=== PATIENT | male | born 1950 | race Caucasian/White ===

== ENCOUNTER 2024-09-21 12:22 | Inpatient (IN) | payer MEDICARE, OTHER, SELFPAY ==
[2024-09-21] VITALS (21 sets, daily range): BP systolic 102–150; BP diastolic 58–78; PULSE 66–86; RESP 8–20; TEMP 34.9–36.8; O2SAT 94–100; BMI 26.3
--- NOTE | ~2024-09-21 | XR_ITS ---
XR chest 1V portable Ordering provider: Tri Cook PA-C History: 74 years Male with . check placement of existing PICC line in left arm . Comparison: September 21, 2024 FINDINGS: MEDIASTINUM: The cardiac silhouette is slightly enlarged. Slightly prominent right hilum. Left PICC l ine with the tip overlying the superior vena cava. LUNGS: No infiltrates, effusions or pneumothorax. OTHER: No free air under the diaphragm. IMPRESSION: No acute cardiopulmonary pathology. Reviewed, dictated and finalized at location A. SER AUT[employer]
--- NOTE | ~2024-09-21 | CT_ITS ---
EXAMINATION: CTA BRAIN/CAROTID DATE: 09/21/2024 12:52 INDICATION: Altered mental status TECHNIQUE: Computed tomographic angiography (CTA) of the head and neck was performed with 100 mL Omni paque-350 intravenous contrast. Multiplanar reconstructions and maximum intensity projection 3D-recon structions of the carotid arteries and of the intracranial arteries were created by the technologist on a separate workstation. Precontrast CT of the head was also obtained. Automated exposure control and iterative reconstruction technique were employed.The dose-length product was 1814.93 mGy-cm. COMPARISON: None. FINDINGS: Carotid arteries: Thoracic aorta is normal in caliber with small amount of nonhemodynamically significant atherosclerot ic plaque and no dissection. The bilateral vertebral arteries are codominant with no stenosis on the extra cranial portions of the arteries. There is a small amount of atherosclerotic plaque with <10% s tenosis of the right carotid bulb relative to normal distal artery lumen diameter (NASCET criteria). There is small amount of atherosclerotic plaque with up to 30% stenosis of the left carotid bulb rela tive to normal distal artery lumen diameter. Visualized mid to upper lungs are clear. Calcified right hilar and mediastinal lymph nodes consistent with old granulomatous disease. 2.2 cm right thyroid ma ss. Cervical soft tissues are otherwise unremarkable. Severe cervical spondylosis. Head: No acute intracranial hemorrhage, acute infarction or abnormal extra axial fluid collection. There is mild scattered white matter hypoattenuation consistent with chronic small vessel ischemic disease. S ymmetric prominence of the sulci consistent with mild age-appropriate diffuse cerebral volume loss. V entricles are normal and symmetric. No mass/mass effect. No abnormally enhancing brain lesions on the postcontrast imaging. Changes of bilateral intraocular lens replacement. Postoperative change of leticia or right mastoidectomy and cochlear implant placement. There is a small right mastoid effusion. Tiny left mastoid effusion. Mild mucoperiosteal thickening the bilateral ethmoid sinuses. Intracranial arteries Bilateral vertebral arteries are codominant. There are scattered atherosclerotic plaque without hemod ynamic significant stenosis along the bilateral carotid siphons. There is no hemodynamically signific ant stenosis in the vertebral, basilar and internal carotid arteries. There are no aneurysms identifi ed. Both A1 and P1 segments are patent. Cerebral arterial arborization appears symmetric. IMPRESSION: 1. <10% stenosis of the right carotid bulb relative to normal distal artery lumen diameter (NASCET cr iteria). 2. 30% stenosis of the left carotid bulb relative to normal distal artery lumen diameter. 3. Normal aging brain with mild to moderate diffuse volume loss and mild scattered white matter hypoa ttenuation consistent with chronic small vessel ischemic disease. No acute intracranial process. Dr. Lopez discussed these findings with Dr. Reese at 12:56 PM. 4. Unremarkable cerebral CT angiogram with no hemodynamically significant stenosis, thrombosis or ane urysm. Reviewed, dictated and finalized at location A. KEN STUFFER IMPRESSION: 1. <10% stenosis of the right carotid bulb relative to normal distal artery lum en diameter (NASCET criteria). 2. 30% stenosis of the left carotid bulb relative to normal distal artery lumen diameter. 3. Normal aging brain with mild to moderate diffuse volume loss and mild scatte red white matter hypoattenuation consistent with chronic small vessel ischemic disease. No acute intracranial process. Dr. Lopez discussed these findings w ith Dr. Reese at 12:56 PM. 4. Unremarkable cerebral CT angiogram with no hemodynamically significant steno sis, thrombosis or aneurysm.
--- NOTE | ~2024-09-21 | XR_ITS ---
EXAMINATION: XR chest 1V portable DATE: 09/21/2024 13:19 INDICATION: Altered mental status TECHNIQUE: frontal view of the chest was obtained. COMPARISON: None FINDINGS: The lungs are clear with no focal airspace opacities, pulmonary edema, pleural effusion or pneumothor ax. The cardiomediastinal silhouette is normal. Fracture deformity, likely chronic at the anterior ri ght seventh rib. IMPRESSION: 1. No acute cardiopulmonary disease. Reviewed, dictated and finalized at location A. CTOR METABOLISM
--- NOTE | 2024-09-21 12:22 | PC.NURSE ---
patient has PICC line in place upon arrival to ED
--- NOTE | 2024-09-21 12:25 | ECG_ITS ---
Test Date: 2024-09-21 12:25:00 Measurements Intervals [place] Rate: 79 P: 74 AK: 158 QRS: -52 QRSD: 105 T: 43 QT: 384 QTc: 441 Interpretive Statements SINUS RHYTHM LOW QRS VOLTAGE IN PRECORDIAL LEADS [QRS DEFLECTION < 1.0 mV IN CHEST LEADS] INCOMPLETE RIGHT BUNDLE BRANCH BLOCK [90+ ms QRS DURATION, TERMINAL R IN V1/V2, 40+ ms S IN I/aVL/V4/V5/V6] LEFT ANTERIOR FASCICULAR BLOCK [QRS AXIS <= -45, QR IN I, RS IN II] NONSPECIFIC ST & T-WAVE ABNORMALITY ABNORMAL ECG No previous ECG available for comparison Electronically Signed On 09-21-2024 15:02:56 [facility] by Bob Tanner M.D.
--- NOTE | 2024-09-21 12:37 | ED.GENADULT ---
HPI - General Adult General Chief complaint: Altered Mental Status Stated complaint: AMS Time Seen by Provider: 09/21/24 12:25 History of Present Illness HPI narrative: 74-year-old male with history of dementia presented emergency department for evaluation for being unresponsive. Family states the patient does have frequent unresponsive episodes. states that she was talking to him he became unresponsive. Patient was transported to the emergency department by EMS. Upon arrival to the ED patient is resting comfortably, has pinpoint pupils, remains unresponsive. Patient does have signed DNR paperwork. Related Data Home Medications ?Medication ?Instructions ?Recorded ?Confirmed ?Last Taken ?Type acetaminophen 500 mg tablet 500 mg PO Q6H PRN Hypoglycemia 02/11/21 08/26/23 Unknown History (Tylenol Extra Strength) albuterol sulfate 90 mcg/actuation 1 puff inhalation Q4H PRN SOB 02/11/21 09/21/24 Unknown History aerosol inhaler (Ventolin HFA) fluticasone propionate 50 2 spray intranasal DAILY 02/11/21 08/26/23 Unknown History mcg/actuation nasal spray,suspension metoprolol tartrate 50 mg tablet 50 mg PO BID 02/11/21 08/26/23 Unknown History montelukast 10 mg tablet 10 mg PO DAILY 02/11/21 08/26/23 Unknown History omeprazole 40 mg capsule,delayed 40 mg PO DAILY 02/11/21 09/21/24 Unknown History release umeclidinium 62.5 mcg-vilanterol 1 inh inhalation DAILY 02/11/21 08/26/23 Unknown History 25 mcg/actuation powdr for inhalation (Anoro Ellipta) docusate sodium 100 mg capsule 100 mg PO DAILY 12/03/21 08/26/23 Unknown History nitroglycerin 0.4 mg sublingual 0.4 mg sublingual Q5M 12/03/21 08/26/23 Unknown History tablet (Nitrostat) tramadol 50 mg tablet 50 mg PO .COMPLEX PRN Pain (Scale 02/25/22 08/26/23 Unknown History Score 4-6) carbidopa 25 mg-levodopa 250 mg 50 - 250 tablet PO Q4H 09/21/24 09/21/24 Unknown History tablet carbidopa ER 50 mg-levodopa 200 mg 50 - 200 tablet PO HS 09/21/24 09/21/24 Unknown History tablet,extended release divalproex 125 mg capsule,delayed 125 mg PO BID 09/21/24 09/21/24 Unknown History release sprinkle glucagon 3 mg/actuation nasal 3 mg intranasal ONCE PRN 09/21/24 09/21/24 Unknown History spray (Baqsimi) Hypoglycemia olanzapine 5 mg disintegrating 5 mg PO Q6H 09/21/24 09/21/24 Unknown History tablet tamsulosin 0.4 mg capsule 0.4 mg PO DAILY 09/21/24 09/21/24 Unknown History trazodone 50 mg tablet 50 mg PO HS 09/21/24 09/21/24 Unknown History umeclidinium 62.5 mcg-vilanterol 1 inh inhalation DAILY PRN Short 09/21/24 09/21/24 Unknown History 25 mcg/actuation powdr for of breath inhalation (Anoro Ellipta) Allergies Allergy/AdvReac Type Severity Reaction Status Date / Time cyclobenzaprine AdvReac Agitated Verified 09/21/24 23:07 morphine AdvReac Agitated Verified 09/21/24 23:07 oxybutynin AdvReac Agitated Verified 09/21/24 23:07 chloride AdvReac Agitated Uncoded 09/21/24 23:07 Review of Systems Review of Systems: ROS unobtainable: Yes unobtainable due to medical condition [facility] Past Medical History Medical History (Updated 10/04/24 @ 08:05 by Francois Reese MD) Dementia Parkinson's Disease Diabetic neuropathy History of benign parathyroid tumor COPD (chronic obstructive pulmonary disease) Diabetes Hyperlipidemia Arthritis Surgical History Surgical History History of coronary artery stent placement History of cochlear implant Social History Social History Social History: former smoker Smoking packs per day: 1 Smoking cigarettes per day: 20.0 Years smoked: 20 Smoking pack-years: 20.00 Smoking status: Former smoker Tobacco type: cigarettes Second hand tobacco smoke exposure: No Alcohol intake: never Substance use: never Substance use type: does not use Lack of Transportation: No Lack of Food: Never True Current Housing: I Have Housing Concerned About Future Housing: No Difficulty Paying Gas/Electric Bills: No Difficulty Paying for Meds: No Currently Unemployed: No Education: High School Diploma/GED Difficulty w/ Childcare or Family Care: No Living arrangements: with family Spiritual care concerns: No Exam Narrative: APPEARANCE: Unresponsive HEAD: normocephalic, atraumatic. EYES: PERRLA/EOMI, conjunctivae clear. NOSE: Normal no drainage EARS:TMS clear with good light reflex. THROAT: Pharynx clear, no exudate. NECK: Supple. No adenopathy, no masses. RESPIRATORY: Airway patent, respirations nonlabored. Clear to auscultation bilaterally, no rales, rhonchi, wheezing. CARDIOVASCULAR: Regular rate and rhythm without murmurs rubs or gallops. ABDOMINAL: Soft, nontender, nondistended, normal bowel sounds MUSCULOSKELETAL: Moves all extremities. Strength/ROM intact, No edema, No calf tenderness. NEURO: Unresponsive, does have a gag reflex. SKIN: Warm, dry. Normal Color Course Vital Signs Vital signs: Vital Signs Pulse Rate 78 09/21/24 12:17 Respiratory Rate 14 09/21/24 12:17 Blood Pressure 102/58 L 09/21/24 12:17 Pulse Oximetry 100 09/21/24 12:17 Oxygen Delivery Room Air 09/21/24 12:17 Temperature 97.8 F 09/23/24 14:00 Pulse Rate 79 09/23/24 14:00 Respiratory Rate 14 09/23/24 14:00 Blood Pressure 143/102 H 09/23/24 14:00 Pulse Oximetry 97 09/23/24 14:00 Oxygen Delivery Room Air 09/23/24 08:00 Medical Decision Making [facility] Narrative Medical decision making narrative: 74-year-old male that has DNI DNR presented emergency department for evaluation for altered mental status. And dementia and has currently been residing in a rehab facility. states that the patient is DNR and she does not want the patient intubated. Patient is currently unresponsive and has minimal gag. Family was informed that the patient is at risk of losing his airway and she confirmed that she does not want him intubated and placed on a ventilator. Family was aware that by not intubating the patient that this could lead to his if he develops respiratory distress. Family confirmed that she is aware of this risk and states that she does not with the patient intubated. Family was comfortable with patient the place and on comfort care. She states he wants him to be happy and comfortable. Differential Diagnosis Differential Diagnosis: TA, CVA, subarachnoid hemorrhage, subdural hematoma, status of left psis, seizure, postictal Medical Records Medical records reviewed: Yes I reviewed the external patient's medical records. Vital Signs Vital Signs: Vital Signs Pulse Rate 78 09/21/24 12:17 Respiratory Rate 14 09/21/24 12:17 Blood Pressure 102/58 L 09/21/24 12:17 Pulse Oximetry 100 09/21/24 12:17 Oxygen Delivery Room Air 09/21/24 12:17 Temperature 97.8 F 09/23/24 14:00 Pulse Rate 79 09/23/24 14:00 Respiratory Rate 14 09/23/24 14:00 Blood Pressure 143/102 H 09/23/24 14:00 Pulse Oximetry 97 09/23/24 14:00 Oxygen Delivery Room Air 09/23/24 08:00 Lab Data Lab results reviewed: Yes I reviewed the patient's lab results. 09/21/24 13:01 09/21/24 13:02 Labs: Lab Results 09/21/24 09/21/24 09/21/24 Range/Units 12:34 12:46 13:01 WBC 9.0 (4.5-10.0) K/mm3 RBC 3.92 L (4.6-6.20) M/mm3 Hgb 12.7 L (14.0-18.0) g/dL Hct 38.4 L (42.0-52.0) % MCV 98.0 (80-100) fl MCH 32.4 (26-34) pg MCHC 33.1 (32-36) g/dl RDW 14.3 (11.5-14.5) % Plt Count 269 (150-375) k/mm3 MPV 9.3 (7.4-10.4) fl Immature Gran % (Auto) 1.3 H (0-0.5) % Neut % (Auto) 72.1 (45.5-73.1) % Lymph % (Auto) 14.4 L (18.3-44.2) % [place] % (Auto) 10.6 H (2.6-8.5) % Eos % (Auto) 0.7 (0-4.4) % Baso % (Auto) 0.9 (0.2-1.2) % Lymph # (Auto) 1.29 (0.9-3.2) K/mm3 [place] # (Auto) 1.0 H (0.1-0.6) K/mm3 Eos # (Auto) 0.1 (0-0.3) K/mm3 Baso # (Auto) 0.1 (0.0-0.1) K/mm3 Abs Immat Gran (auto) 0.12 H (0.00-0.031) K/mm3 Absolute Neuts (auto) 6.5 (1.3-6.7) K/mm3 Absolute Nucleated RBC 0.000 (0.0-0.012) K/mm3 Nucleated RBC % 0.0 (0.0-0.2) % PT 14.0 (11.1-14.7) Seconds INR 1.0 APTT 27.9 (22.3-36.8) Seconds Methemoglobin (0-1.5) %THb Sodium (137-145) mmol/L Potassium (3.4-5.0) mmol/L Chloride (98-107) mmol/L Carbon Dioxide (22-30) mmol/L Anion Gap (4-12) mmol/L BUN (9-20) mg/dL Creatinine 1.40 (0.8-1.5) mg/dL Estim Creat Clear Calc 45 ml/min Estimated GFR 49 L (59 - ) Glucose (65-110) mg/dL POC Capillary Glucose 148 H (65-105) mg/dl Lactic Acid 2.9 H (0.7-2.0) mmol/L Calcium (8.4-10.2) mg/dL Total Bilirubin (0.2-1.3) mg/dL AST (17-59) U/L ALT (6-50) U/L Alkaline Phosphatase (38-126) U/L Ammonia < 9 L (9-30) umol/L Total Protein (6.3-8.2) g/dL Albumin (3.5-5.1) g/dL Urine Color (Yellow) Urine Appearance (Clear) Urine pH (5.0-9.0) Ur Specific [place] (1.001-1.035) Urine Protein (Negative) mg/dL Urine Glucose (UA) (Negative) mg/dL Urine Ketones (Negative) mg/dL Ur Blood (Man) (Negative) Urine Nitrate (Negative) Urine Bilirubin (Negative) Urine Urobilinogen (<2.0) mg/dL Add Ur Microanalysis Leukocyte Esterase Rfl (Negative) JOCELYN/UL Urine RBC (0-2) /hpf Urine WBC (0-3) /hpf Ur Squamous Epith Cells (Few) /hpf Urine Bacteria /hpf Urine Casts Hyaline Casts (None) /lpf Urine Mucus /lpf Urine Opiates Screen (Negative) Urine Methadone Screen (Negative) Ur Barbiturates Screen (Negative) Ur Phencyclidine Scrn (Negative) Ur Amphetamine Screen (Negative) U Benzodiazepines Scrn (Negative) Urine Cocaine Screen (Negative) U Cannabinoids Screen (Negative) Ethyl Alcohol < 10 (<10) mg/dL Influenza A (RT-PCR) (Negative) Influenza B (RT-PCR) (Negative) RSV (RT-PCR) (Negative) SARS-CoV-2 RNA (RT-PCR) (Negative) 09/21/24 09/21/24 09/21/24 Range/Units 13:02 13:11 13:19 WBC (4.5-10.0) K/mm3 RBC (4.6-6.20) M/mm3 Hgb (14.0-18.0) g/dL Hct (42.0-52.0) % MCV (80-100) fl MCH (26-34) pg MCHC (32-36) g/dl RDW (11.5-14.5) % Plt Count (150-375) k/mm3 MPV (7.4-10.4) fl Immature Gran % (Auto) (0-0.5) % Neut % (Auto) (45.5-73.1) % Lymph % (Auto) (18.3-44.2) % [place] % (Auto) (2.6-8.5) % Eos % (Auto) (0-4.4) % Baso % (Auto) (0.2-1.2) % Lymph # (Auto) (0.9-3.2) K/mm3 [place] # (Auto) (0.1-0.6) K/mm3 Eos # (Auto) (0-0.3) K/mm3 Baso # (Auto) (0.0-0.1) K/mm3 Abs Immat Gran (auto) (0.00-0.031) K/mm3 Absolute Neuts (auto) (1.3-6.7) K/mm3 Absolute Nucleated RBC (0.0-0.012) K/mm3 Nucleated RBC % (0.0-0.2) % PT (11.1-14.7) Seconds INR APTT (22.3-36.8) Seconds Methemoglobin 0.5 (0-1.5) %THb Sodium 136 L (137-145) mmol/L Potassium 3.9 (3.4-5.0) mmol/L Chloride 99 (98-107) mmol/L Carbon Dioxide 33 H (22-30) mmol/L Anion Gap 4 (4-12) mmol/L BUN 18 (9-20) mg/dL Creatinine 1.40 H (0.8-1.5) mg/dL Estim Creat Clear Calc 45 ml/min Estimated GFR 49 L (59 - ) Glucose 145 H (65-110) mg/dL POC Capillary Glucose (65-105) mg/dl Lactic Acid (0.7-2.0) mmol/L Calcium 10.1 (8.4-10.2) mg/dL Total Bilirubin 0.6 (0.2-1.3) mg/dL AST 21 (17-59) U/L ALT 7 (6-50) U/L Alkaline Phosphatase 66 (38-126) U/L Ammonia (9-30) umol/L Total Protein 7.0 (6.3-8.2) g/dL Albumin 4.1 (3.5-5.1) g/dL Urine Color (Yellow) Urine Appearance (Clear) Urine pH (5.0-9.0) Ur Specific [place] (1.001-1.035) Urine Protein (Negative) mg/dL Urine Glucose (UA) (Negative) mg/dL Urine Ketones (Negative) mg/dL Ur Blood (Man) (Negative) Urine Nitrate (Negative) Urine Bilirubin (Negative) Urine Urobilinogen (<2.0) mg/dL Add Ur Microanalysis Leukocyte Esterase Rfl (Negative) JOCELYN/UL Urine RBC (0-2) /hpf Urine WBC (0-3) /hpf Ur Squamous Epith Cells (Few) /hpf Urine Bacteria /hpf Urine Casts Hyaline Casts (None) /lpf Urine Mucus /lpf Urine Opiates Screen (Negative) Urine Methadone Screen (Negative) Ur Barbiturates Screen (Negative) Ur Phencyclidine Scrn (Negative) Ur Amphetamine Screen (Negative) U Benzodiazepines Scrn (Negative) Urine Cocaine Screen (Negative) U Cannabinoids Screen (Negative) Ethyl Alcohol (<10) mg/dL Influenza A (RT-PCR) Negative (Negative) Influenza B (RT-PCR) Negative (Negative) RSV (RT-PCR) Negative (Negative) SARS-CoV-2 RNA (RT-PCR) Negative (Negative) 09/21/24 09/21/24 Range/Units 14:27 16:52 WBC (4.5-10.0) K/mm3 RBC (4.6-6.20) M/mm3 Hgb (14.0-18.0) g/dL Hct (42.0-52.0) % MCV (80-100) fl MCH (26-34) pg MCHC (32-36) g/dl RDW (11.5-14.5) % Plt Count (150-375) k/mm3 MPV (7.4-10.4) fl Immature Gran % (Auto) (0-0.5) % Neut % (Auto) (45.5-73.1) % Lymph % (Auto) (18.3-44.2) % [place] % (Auto) (2.6-8.5) % Eos % (Auto) (0-4.4) % Baso % (Auto) (0.2-1.2) % Lymph # (Auto) (0.9-3.2) K/mm3 [place] # (Auto) (0.1-0.6) K/mm3 Eos # (Auto) (0-0.3) K/mm3 Baso # (Auto) (0.0-0.1) K/mm3 Abs Immat Gran (auto) (0.00-0.031) K/mm3 Absolute Neuts (auto) (1.3-6.7) K/mm3 Absolute Nucleated RBC (0.0-0.012) K/mm3 Nucleated RBC % (0.0-0.2) % PT (11.1-14.7) Seconds INR APTT (22.3-36.8) Seconds Methemoglobin (0-1.5) %THb Sodium (137-145) mmol/L Potassium (3.4-5.0) mmol/L Chloride (98-107) mmol/L Carbon Dioxide (22-30) mmol/L Anion Gap (4-12) mmol/L BUN (9-20) mg/dL Creatinine (0.8-1.5) mg/dL Estim Creat Clear Calc ml/min Estimated GFR (59 - ) Glucose (65-110) mg/dL POC Capillary Glucose (65-105) mg/dl Lactic Acid 1.7 (0.7-2.0) mmol/L Calcium (8.4-10.2) mg/dL Total Bilirubin (0.2-1.3) mg/dL AST (17-59) U/L ALT (6-50) U/L Alkaline Phosphatase (38-126) U/L Ammonia (9-30) umol/L Total Protein (6.3-8.2) g/dL Albumin (3.5-5.1) g/dL Urine Color Dark yellow (Yellow) Urine Appearance Clear (Clear) Urine pH 5.5 (5.0-9.0) Ur Specific [place] 1.026 (1.001-1.035) Urine Protein 1+ H (Negative) mg/dL Urine Glucose (UA) 2+ H (Negative) mg/dL Urine Ketones Trace H (Negative) mg/dL Ur Blood (Man) Negative (Negative) Urine Nitrate Negative (Negative) Urine Bilirubin Negative (Negative) Urine Urobilinogen 0.2 (<2.0) mg/dL Add Ur Microanalysis Reviewed Leukocyte Esterase Rfl Trace H (Negative) JOCELYN/UL Urine RBC 0-2 (0-2) /hpf Urine WBC 0-5 (0-3) /hpf Ur Squamous Epith Cells Occasional (Few) /hpf Urine Bacteria None seen /hpf Urine Casts >20 Hyaline Casts Present (None) /lpf Urine Mucus Present /lpf Urine Opiates Screen Negative (Negative) Urine Methadone Screen Negative (Negative) Ur Barbiturates Screen Negative (Negative) Ur Phencyclidine Scrn Negative (Negative) Ur Amphetamine Screen Negative (Negative) U Benzodiazepines Scrn Negative (Negative) Urine Cocaine Screen Negative (Negative) U Cannabinoids Screen Negative (Negative) Ethyl Alcohol (<10) mg/dL Influenza A (RT-PCR) (Negative) Influenza B (RT-PCR) (Negative) RSV (RT-PCR) (Negative) SARS-CoV-2 RNA (RT-PCR) (Negative) ABG Data ABG results: 09/21/24 13:11 Puncture Site Right radial ABG pH 7.402 ABG pCO2 40.9 ABG pO2 72.6 L ABG PO2/FiO2 Ratio 3.46 ABG HCO3 24.9 ABG O2 Saturation 94.7 L ABG O2 Content 14.4 L ABG Base Excess 0.1 A-a Gradient 28.2 Oxyhemoglobin 93.4 Carboxyhemoglobin 0.1 Reduced Hemoglobin 6.0 H Total Hemoglobin 10.9 L O2 Delivery Device Room air O2 Liters/Min Not Reportable FiO2 21 Discharge Plan Discharge Clinical Impression: Unresponsive state, Dementia Patient Disposition: Still a Patient Condition: Guarded Prognosis
[2024-09-21 12:38] LABS: Glucose Point of Care 148 mg/dl (65-105)
--- NOTE | 2024-09-21 12:45 | PCRCNOTE ---
ABG delayed, to be done after CT per RN. Stated she will call when back from CT.
[2024-09-21 12:48] LABS: Estimated CRCL calculation 45 ml/min; Estimated Glomerular Filt Rate 49
[2024-09-21] MEDS: SODIUM CHLORIDE 0.9% IV 1,000 ML 999 ML IV CONT ×2 (12:56→14:09)
[2024-09-21] MEDS: NALOXONE HCL INJ 2 MG/2 ML AMP IV PUSH (12:57)
[2024-09-21 13:12] LABS: Basophils Absolute Auto 0.1 K/mm3 (0.0-0.1); Basophils Percent Auto 0.9 % (0.2-1.2); Eosinophils Absolute Auto 0.1 K/mm3 (0-0.3); Eosinophils Percent Auto 0.7 % (0-4.4); Hematocrit 38.4 % (42.0-52.0); Hemoglobin 12.7 g/dL (14.0-18.0); Immature Granulocyte Absolute 0.12 K/mm3 (0.00-0.031); Immature Granulocyte Percent A 1.3 % (0-0.5); Lymphocytes Absolute Auto 1.29 K/mm3 (0.9-3.2); Lymphocytes Percent Auto 14.4 % (18.3-44.2); Mean Corpuscular HGB Conc 33.1 g/dl (32-36); Mean Corpuscular Hemoglobin 32.4 pg (26-34); Mean Platelet Volume 9.3 fl (7.4-10.4); Monocytes Percent Auto 10.6 % (2.6-8.5); Neutrophils Absolute Auto 6.5 K/mm3 (1.3-6.7); Neutrophils Percent Auto 72.1 % (45.5-73.1); Platelet Count Result 269 k/mm3 (150-375); Red Blood Count 3.92 M/mm3 (4.6-6.20); Red Cell Distribution Width 14.3 % (11.5-14.5)
[2024-09-21 13:12] LABS: Alveolar/Arterial O2 Gradient 28.2 mmHg; Base Excess ABG 0.1 mEq/l (+/-2.0); Carboxyhemoglobin 0.1 % THb (0-2.0); Fractional Inspired Oxygen 21 %; HCO3 ABG 24.9 mEq/l (22.0-26.0); Methemoglobin ABG 0.5 %THb (0-1.5); Oxygen Content ABG 14.4 %vol (16.0-22.0); Oxygen Saturation ABG 94.7 % (95.0-100.0); Oxyhemoglobin 93.4 % THb (90.0-100.0); PCO2 ABG 40.9 mmHg (35.0-45.0); PO2 ABG 72.6 mmHg (80.0-100.0); PO2 FiO2 Ratio Arterial Blood 3.46 %; Total Hemoglobin 10.9 g/dL (12.0-18.0); pH ABG 7.402 (7.350-7.450)
[2024-09-21 13:13] LABS: Device ROOM AIR; Modified Allen's Test Pass; Site Drawn RIGHT RADIAL
[2024-09-21 13:21] LABS: Alanine Aminotransferase 7 U/L (6-50); Albumin Level 4.1 g/dL (3.5-5.1); Alkaline Phosphatase 66 U/L (38-126); Anion Gap 4 mmol/L (4-12); Aspartate Amino Transferase 21 U/L (17-59); Bilirubin,Total 0.6 mg/dL (0.2-1.3); Blood Urea Nitrogen 18 mg/dL (9-20); Calcium 10.1 mg/dL (8.4-10.2); Carbon Dioxide 33 mmol/L (22-30); Chloride 99 mmol/L (98-107); Estimated CRCL calculation 45 ml/min; Estimated Glomerular Filt Rate 49; Glucose 145 mg/dL (65-110); Potassium 3.9 mmol/L (3.4-5.0); Sodium 136 mmol/L (137-145)
[2024-09-21 13:37] LABS: Lactic Acid Reflex 2.9 mmol/L (0.7-2.0)
[2024-09-21 13:52] LABS: Partial Thromboplastin Time 27.9 Seconds (22.3-36.8)
[2024-09-21 14:46] LABS: Add Urine Microscopic? YES; Appearance Urine Clear (Clear); Bacteria Urine None Seen /hpf; Bilirubin Urine Negative (Negative); Blood Urine Negative (Negative); Color Urine Dark Yellow (Yellow); Glucose Urine UA 2+ mg/dL (Negative); Hyaline Casts Urine Present /lpf; Ketones Urine Trace mg/dL (Negative); Leukocyte Esterase Ur Trace LEU/UL (Negative); Mucus Urine Present /lpf; Need Manual Microscopic Reviewed; Nitrate Urine Negative (Negative); Non Pathogenic Casts >20; Protein Urine 1+ mg/dL (Negative); RBC Urine 0-2 /hpf (0-2); Specific Grav Ur 1.026 (1.001-1.035); Squamous Epithelial Cell Urine Occasional /hpf (Few); Urobilinogen Urine 0.2 mg/dL (<2.0); WBC Urine 0-5 /hpf (0-3); pH Urine 5.5 (5.0-9.0)
[2024-09-21 14:56] LABS: Ammonia < 9 umol/L (9-30); Ethanol < 10 mg/dL (<10)
[2024-09-21 14:58] LABS: Amphetamine Screen Urine Negative (Negative); Barbiturate Screen Urine Negative (Negative); Benzodiazepines Screen Urine Negative (Negative); Cannabinoid Screen Urine Negative (Negative); Cocaine Screen Urine Negative (Negative); Methadone Screen Urine Negative (Negative); Opiate Screen Urine Negative (Negative); Phencyclidine Screen Urine Negative (Negative)
[2024-09-21 15:01] LABS: Influenza A QL RT-PCR Negative (Negative); Influenza B QL RT-PCR Negative (Negative); RSV RNA, RT-PCR Negative (Negative); SARS-CoV-2 RNA PCR Negative (Negative)
--- NOTE | 2024-09-21 15:07 | PCCCNOTE ---
1507-Called to the pt's room to discuss Hospice with the pt's . At this point the discussion was educational. The wants to make sure there was no harm done with his previous medication regimen at his prior facility and if his cognitive status can be improved she would be happy. Stated if he has naturally declined after further testing she is open for discussion for hospice care back at his facility. Treating ED provider and charge nurse made aware.-tiffanie.
--- NOTE | 2024-09-21 15:48 | PC.NURSE ---
Patient remains unresponsive, but all vital signs are stable. at bedside
--- NOTE | 2024-09-21 16:03 | PM.IMHP ---
H&P: HPI History of Present Illness Date/Time: 09/21/24 16:03 Chief Complaint: Unresponsive Narrative: 74 y/o M presents here with unresponsiveness with PMH of dementia, COPD, diabetes, and hyperlipidemia. The patient presents here from a facility via EMS for further evaluation of unresponsiveness. Per facility to report to EMS the patient became unresponsive around 11:30 a.m.. At baseline the patient is A&O x1 secondary to advanced dementia. witnessed patient becoming unresponsive, she reports she was speaking with patient when this occurred. AMS was probably called. Per EMS report, since becoming unresponsive the patient has been intermittently responsive to verbal. EMS attempted to administered Narcan given he had pinpoint pupils upon their exam with little/no effect. Initially upon arrival he had spontaneous eye opening, now is unresponsive with minimal gag. Per family report to the ED provider, the patient has a history of frequent unresponsive episodes. Per the patient is DNI/DNR. is comfortable with transitioning patient to comfort care. The patient is currently awake, eye opening spontaneously, A/Ox1, and speaking in short sentences (topics not relevant to current care or making sense). Patient has cochlear implant on right and is not candidate for MRI. Initial VS at presentation: 95? F, HR 78, RR 14, 102/58, and 100% on RA. ED workup showed: No leukocytosis, hemoglobin 12.7 (no previous available for comparison), normal coags, ABG showed O2 of 72.6 with O2 saturation of 94.7% on room air, creatinine 1.4 and GFR 49, glucose 145, lactic 2.9, negative ammonia, and UA showed 1+ protein, 2+ glucose, trace ketones, trace leuks otherwise unremarkable. UDS negative. Viral PCR negative. Head/neck CTA showed less than 10% stenosis of the right carotid bulb, 30% stenosis of the left carotid bulb, normal aging brain with [id number] diffuse volume loss and mild scattered white matter hypoattenuation, unremarkable CT cerebral CT angiogram. Review of Systems Review of Systems: ROS unobtainable: Yes unobtainable due to mental status (Unresponsive) [facility] Past Medical History Medical History (Updated 09/21/24 @ 16:10 by Erica Cobb, FLORA) Arthritis COPD (chronic obstructive pulmonary disease) Dementia Diabetes Diabetic neuropathy History of benign parathyroid tumor Hyperlipidemia Parkinson's Disease Surgical History Surgical History History of cochlear implant History of coronary artery stent placement Social History Social History Social History: former smoker Smoking status: Former smoker Second hand tobacco smoke exposure: No Alcohol intake: never Substance use: never Substance use type: does not use Lack of Transportation: No Lack of Food: Never True Current Housing: I Have Housing Concerned About Future Housing: No Difficulty Paying Gas/Electric Bills: No Difficulty Paying for Meds: No Currently Unemployed: No Education: High School Diploma/GED Difficulty w/ Childcare or Family Care: No Living arrangements: with family Meds Home Medications and Allergies Home Medications Medication Instructions Recorded Confirmed Type acetaminophen 500 mg tablet 500 mg PO Q6H PRN 02/11/21 08/26/23 History (Tylenol Extra Strength) albuterol sulfate 90 mcg/actuation 1 puff inhalation Q4H PRN SOB 02/11/21 09/21/24 History aerosol inhaler (Ventolin HFA) aspirin 81 mg tablet,delayed 81 mg PO DAILY 02/11/21 08/26/23 History release atorvastatin 80 mg tablet 80 mg PO DAILY 02/11/21 08/26/23 History coenzyme Q10 100 mg capsule 100 mg PO DAILY 02/11/21 08/26/23 History fenofibrate nanocrystallized 48 mg 48 mg PO DAILY 02/11/21 09/21/24 History tablet fluticasone propionate 50 2 spray intranasal DAILY 02/11/21 08/26/23 History mcg/actuation nasal spray,suspension magnesium oxide 400 mg (241.3 mg 400 mg PO DAILY 02/11/21 08/26/23 History magnesium) tablet metoprolol tartrate 50 mg tablet 50 mg PO BID 02/11/21 08/26/23 History montelukast 10 mg tablet 10 mg PO DAILY 02/11/21 08/26/23 History wrwaordj-on-qoqpw 300 mcg-K 60 1 tablet PO DAILY 02/11/21 08/26/23 History mcg-lycop 600 mcg-lutein 300 mcg tablet (Men 50 Plus Multivitamin) omeprazole 40 mg capsule,delayed 40 mg PO DAILY 02/11/21 09/21/24 History release umeclidinium 62.5 mcg-vilanterol 1 inh inhalation DAILY 02/11/21 08/26/23 History 25 mcg/actuation powdr for inhalation (Anoro Ellipta) vitamin B complex 1 cap PO DAILY 02/11/21 08/26/23 History evolocumab 140 mg/mL subcutaneous 140 mg subcut ONCE 06/10/21 08/26/23 History syringe (Repatha Syringe) docusate sodium 100 mg capsule 100 mg PO DAILY 12/03/21 08/26/23 History nitroglycerin 0.4 mg sublingual 0.4 mg sublingual Q5M 12/03/21 08/26/23 History tablet (Nitrostat) tramadol 50 mg tablet 50 mg PO .COMPLEX PRN 02/25/22 08/26/23 History calcitriol 0.25 mcg capsule 0.25 mcg PO DAILY 08/26/23 08/26/23 History donepezil 10 mg/24 hour weekly 10 mg transdermal WEEKLY #4 ea 03/23/24 09/21/24 Rx transdermal patch (Adlarity) duloxetine 30 mg capsule,delayed 60 mg PO DAILY 03/23/24 03/23/24 History release memantine 10 mg tablet See Rx Instructions .Route 03/23/24 03/23/24 Rx .COMPLEX #180 tabs carbidopa 25 mg-levodopa 250 mg 50 - 250 tablet PO Q4H 09/21/24 09/21/24 History tablet carbidopa ER 50 mg-levodopa 200 mg 50 - 200 tablet PO HS 09/21/24 09/21/24 History tablet,extended release divalproex 125 mg capsule,delayed 125 mg PO BID 09/21/24 09/21/24 History release sprinkle ferrous sulfate 325 mg (65 mg 325 mg PO DAILY 09/21/24 09/21/24 History iron) tablet ferrous sulfate 325 mg (65 mg mg 09/21/24 History iron) tablet olanzapine 5 mg disintegrating 5 mg PO Q6H 09/21/24 09/21/24 History tablet tamsulosin 0.4 mg capsule 0.4 mg PO DAILY 09/21/24 09/21/24 History trazodone 50 mg tablet 50 mg PO HS 09/21/24 09/21/24 History Allergies Allergy/AdvReac Type Severity Reaction Status Date / Time No Known Allergies Allergy Verified 03/23/24 13:09 Vital Signs Vital Signs - 24 hr 09/21/24 12:17 09/21/24 13:03 09/21/24 14:09 Temperature Pulse Rate 78 75 67 Respiratory Rate 14 13 15 Blood Pressure 102/58 L 128/58 L 112/63 Pulse Oximetry 100 100 100 Oxygen Delivery Room Air 09/21/24 15:56 Temperature 95 F L Pulse Rate Respiratory Rate Blood Pressure Pulse Oximetry Oxygen Delivery Exam Narrative: Exam around 2100. Const: General: comfortable and no acute distress Other: , male, elderly, chronically ill-appearing HENMT: Face/Nose/Sinus: Normal nares present Mouth: Yes moist mucous membranes Eyes: General: appearance normal, both eyes and all related structures Sclera: sclerae normal Pupils: Equal, round and reactive pupils present EOM: EOMs intact bilaterally Resp: Effort & Inspection: normal respiratory effort Auscultation: clear to auscultation bilaterally Cardio: Rate: regular rate Rhythm: regular rhythm GI: Other: Abdomen soft, nondistended, nontender. Normoactive bowel sounds in all quadrants. Urinary Catheter: Urinary Catheter: patent and draining Skin: General skin exam: normal color and no rashes or lesions noted Other: Ecchymosis scattered to bilateral calves in various stages of healing with no particular pattern. Neuro: Other: A/Ox1, fine tremor at rest to head. unable to follow simple commands. Unable to assess strength due to inability to follow commands. Moving bilateral upper extremities. Extrem: Other: Trace edema to bilateral ankles. Psych: Other: Flattened affect. Poor insight and judgment. Pleasant. H&P: Results Labs Labs: Short CBC 09/21/24 Range/Units 13:01 WBC 9.0 (4.5-10.0) K/mm3 Hgb 12.7 L (14.0-18.0) g/dL Hct 38.4 L (42.0-52.0) % Plt Count 269 (150-375) k/mm3 BMP 09/21/24 09/21/24 12:46 13:02 Sodium 136 L Potassium 3.9 Chloride 99 Carbon Dioxide 33 H BUN 18 Creatinine 1.40 1.40 H Glucose 145 H Calcium 10.1 Liver Function 09/21/24 Range/Units 13:02 Total Bilirubin 0.6 (0.2-1.3) mg/dL AST 21 (17-59) U/L ALT 7 (6-50) U/L Alkaline Phosphatase 66 (38-126) U/L Albumin 4.1 (3.5-5.1) g/dL Urine 09/21/24 Range/Units 14:27 Urine Color Dark yellow (Yellow) Urine Appearance Clear (Clear) Urine pH 5.5 (5.0-9.0) Ur Specific [place] 1.026 (1.001-1.035) Urine Protein 1+ H (Negative) mg/dL Urine Glucose (UA) 2+ H (Negative) mg/dL Assessment and Plan Assessment and plan (1) Unresponsive state: Code(s): R41.89 - Other symptoms and signs involving cognitive functions and awareness Status: Acute Assessment and Plan: After long discussion with the patient's (patient's medical POA), she is okay with proceeding with patient remaining DNR/DNI and comfort care. If reversible cause for unresponsive episodes is revealed, would like to re-discuss code status. She is okay with obtaining an EEG, will hold on further workup or consultations until results. Patient is on Depakote, will continue. She reports he has had 2 previous workups at other hospitals for same issue without results. Care coordination consulted for hospice care in the event that the EEG is unrevealing. Diet as tolerated, start with clear liquids and advance to regular if no longer unresponsive. Morphine, Ativan, and atropine SL ordered. - CTA head/neck: 1. <10% stenosis of the right carotid bulb relative to normal distal artery lumen diameter (NASCET criteria). 2. 30% stenosis of the left carotid bulb relative to normal distal artery lumen diameter. 3. Normal aging brain with mild to moderate diffuse volume loss and mild scattered white matter hypoattenuation consistent with chronic small vessel ischemic disease. No acute intracranial process. Dr. Lopez discussed these findings with Dr. Reese at 12:56 PM. 4. Unremarkable cerebral CT angiogram with no hemodynamically significant stenosis, thrombosis or aneurysm. - lactic 2.9, IV fluids at 125 mL/hour - glucose 148 on arrival - Na 136 - UDS and viral PCR negative - UA not consistent with UTI - CXR no acute cardiopulmonary disease Plan Diet: Diet as tolerated GI Prophylaxis: Not currently indicated DVT Prophylaxis: Not currently indicated Lines: Peripheral Code Status: DNR/DNI, comfort measures Quality If No VTE Prophylaxis Answer both mechanical and pharmacologic: Reason no mechanical VTE proph: low risk/not indicated Reason no pharmacologic proph: low risk/not indicated Hospitalist MIPS Advance Care Plan I have confirmed that the patient's Advanced Care Plan is present, code status is documented, or surrogate decision maker is listed in patient medical record.: Yes Medication Reconciliation I have utilized all available resources to obtain, update and review the patients current medications (includes all prescriptions, OTC, herbals, cannabis, and nutritional supplements).: Yes
--- NOTE | 2024-09-21 16:04 | PC.NURSE ---
bear miguel angelgger placed on patient due to low rectal temperature
[2024-09-21 16:08] LABS: Reflex Lactic Acid Yes or No Add Lactic
--- NOTE | 2024-09-21 16:18 | PC.NURSE ---
Patent woke his eyes and stated what are you doing when we were changing and cleaning him up. Patient was not able to comprehend or answer questions, but he did wake and was alert for a few moments. patient then fell back to sleep after getting clean and changed
[2024-09-21 17:32] LABS: Lactic Acid 1.7 mmol/L (0.7-2.0)
--- NOTE | 2024-09-21 18:26 | PC.NURSE ---
Dr Reese states to remove bear hugger when patient's temp turns 96.8
--- NOTE | 2024-09-21 18:29 | PC.NURSE ---
Report given to NEL Novak in 3rd med. Once patient internal temp reaches 96.8, patient can go to the floor.
--- NOTE | 2024-09-21 21:38 | ADMGEN ---
This patient, Jerrell Trevizo Jr., was admitted to [address] [place] [address] Room [facility]. Patient/family oriented to hospital policies and general routines including ID bracelet, bed and alarms, visiting hours, pain management, procedures, bathroom and other care routines, personal items, smoking policy, room service/diet, and visiting hours. Information on how to activate the Rapid Response Team has been discussed. Patient/Family are encouraged to report perceived risks to care and to ask questions if they do not understand what they are told or what they should do. This patient, Jerrell Trevizo Jr., was admitted to [address] [place] [address] Room [facility]. Patient/family oriented to hospital policies and general routines including ID bracelet, bed and alarms, visiting hours, pain management, procedures, bathroom and other care routines, personal items, smoking policy, room service/diet, and visiting hours. Information on how to activate the Rapid Response Team has been discussed. Patient/Family are encouraged to report perceived risks to care and to ask questions if they do not understand what they are told or what they should do.
[2024-09-21] MEDS: CARBIDOPA/LEVODOPA 25/100 MG CR TABLET 2 TABLET PO (22:37)
[2024-09-21] MEDS: CARBIDOPA/LEVODOPA 25/250 MG TABLET 1 TABLET PO (22:37)
[2024-09-21] MEDS: OLANZapine DISPERTAB 5 MG PO (22:37)
[2024-09-21] MEDS: DIVALPROEX SODIUM SPRINKLE 125 MG CAP.DR PO (22:38)
[2024-09-21] MEDS: SODIUM CHLORIDE 0.9% IV 1,000 ML 125 ML IV CONT (22:38)
[2024-09-22] MEDS: SODIUM CHLORIDE 0.9% IV 1,000 ML 125 ML IV CONT ×4 (00:44→21:16)
[2024-09-22] MEDS: OLANZapine DISPERTAB 5 MG PO ×4 (04:30→23:13)
[2024-09-22] MEDS: CARBIDOPA/LEVODOPA 25/250 MG TABLET 1 TABLET PO ×6 (04:30→23:13)
[2024-09-22 06:00] VITALS: BP 133/71; PULSE 70; RESP 18; TEMP 36.2; O2SAT 97
[2024-09-22] MEDS: DIVALPROEX SODIUM SPRINKLE 125 MG CAP.DR PO ×2 (09:43→18:03)
[2024-09-22] MEDS: TAMSULOSIN HCL 0.4 MG CAPSULE PO (09:43)
--- NOTE | 2024-09-22 12:44 | WPDNEUROLOGY ---
Neurology EEG Report General Information Date of Study: 09/22/24 TEST Electroencephalogram DIAGNOSIS episodes of unresponsiveness CONDITION OF RECORDING bedside according EEG NUMBER [id number] CLINICAL HISTORY Patient unable to offer history. EEG DESCRIPTION During wakefulness the background activity consists of predominant theta activity at 5-6 hertz with an amplitude of 15-30 microvolts which appears poorly organized. There is no significant anterior-posterior gradient. Anteriorly low amplitude mixed frequency activity was seen. Intermittently muscle tension artifact supervene to upon the background activity. Hyperventilation of 40 she which were not performed. Patient did not progress to stage 2 sleep. IMPRESSION This is an abnormal EEG due to presence of moderate diffuse background slowing suggestive generalized cephalopathy. However no focal or paroxysmal epileptiform abnormalities were seen.
--- NOTE | 2024-09-22 13:51 | P.PNIM_ITS ---
Progress Note: A&P Assessment and Plan (1) Unresponsive state: Code(s): R41.89 - Other symptoms and signs involving cognitive functions and awareness Status: Acute (2) Dementia: Code(s): F03.90 - Unspecified dementia, unspecified severity, without behavioral disturbance, psychotic disturbance, mood disturbance, and anxiety Status: Acute (3) Parkinson's Disease: Code(s): G20 - Parkinson's disease Status: Acute Plan 74-year-old male with past medical history of Parkinson's disease, dementia, COPD presented with an episode of unresponsiveness.ED workup showed: No leukocytosis, hemoglobin 12.7 (no previous available for comparison), normal coags, ABG showed O2 of 72.6 with O2 saturation of 94.7% on room air, creatinine 1.4 and GFR 49, glucose 145, lactic 2.9, negative ammonia, and UA showed 1+ protein, 2+ glucose, trace ketones, trace leuks otherwise unremarkable. UDS negative. Viral PCR negative. Head/neck CTA showed less than 10% stenosis of the right carotid bulb, 30% stenosis of the left carotid bulb, normal aging brain with [id number] diffuse volume loss and mild scattered white matter hypoattenuation, unremarkable CT cerebral CT angiogram. 1. Acute encephalopathy: History of baseline dementia Parkinson's disease who is a POA is requesting for evaluation for hospice/comfort care Referral has been sent Continue with levodopa carbidopa Continue with divalproex Continue with Zyprexa 2. DVT prophylaxis: SCDs 3. Code status: DNR 4. Disposition: Anticipate discharge within next 24 hours with hospice Time Spent With Patient Time with patient: 15 - 25 minutes Subjective Date/time seen: 09/22/24 13:51 Interval history: Patient is awake, resting in bed Review of Systems Review of Systems: ROS unobtainable: Yes unobtainable due to medical condition Exam Const: General: comfortable and no acute distress HENMT: Mouth: Yes moist mucous membranes Eyes: Sclera: sclerae normal Neck: Neck: supple Resp: Auscultation: clear to auscultation bilaterally Cardio: Rate: regular rate Rhythm: regular rhythm GI: GI Palp: Yes Soft to palpation Auscultation: normal bowel sounds Skin: General skin exam: normal color Psych: Other: Awake, alert and oriented x1 Objective Data Vital Signs Vital Signs: Vital Signs - 24 hr 09/21/24 14:09 09/21/24 15:56 09/21/24 17:05 Temperature 95 F L 94.8 F L Pulse Rate 67 74 Respiratory Rate 15 14 Blood Pressure 112/63 105/59 L Pulse Oximetry 100 97 Oxygen Delivery 09/21/24 17:46 09/21/24 18:03 09/21/24 14:30 Temperature 95.2 F L 95.8 F L Pulse Rate 79 70 Respiratory Rate 13 14 Blood Pressure Pulse Oximetry 98 100 Oxygen Delivery 09/21/24 14:31 09/21/24 14:45 09/21/24 15:00 Temperature Pulse Rate 67 66 67 Respiratory Rate 15 16 17 Blood Pressure 150/69 H Pulse Oximetry 100 100 94 Oxygen Delivery 09/21/24 15:01 09/21/24 15:15 09/21/24 15:30 Temperature Pulse Rate 67 69 69 Respiratory Rate 19 20 18 Blood Pressure 133/71 Pulse Oximetry 98 100 98 Oxygen Delivery 09/21/24 15:31 09/21/24 15:46 09/21/24 16:00 Temperature Pulse Rate 69 69 73 Respiratory Rate 17 17 13 Blood Pressure 121/63 Pulse Oximetry 100 100 100 Oxygen Delivery 09/21/24 16:02 09/21/24 16:16 09/21/24 18:44 Temperature 96.3 F L 96.8 F L Pulse Rate 86 71 Respiratory Rate 20 8 L Blood Pressure 132/73 Pulse Oximetry 100 100 Oxygen Delivery 09/21/24 22:00 09/22/24 06:00 09/22/24 09:45 Temperature 98.2 F 97.1 F L Pulse Rate 82 70 Respiratory Rate 18 18 Blood Pressure 125/78 133/71 Pulse Oximetry 98 97 Oxygen Delivery Room Air Intake/Output Intake/Output: Intake & Output 09/19/24 09/20/24 09/21/24 09/22/24 23:59 23:59 23:59 23:59 Intake Total 2011.5 1830.8 Output Total 500 Balance 2011.5 1330.8 Meds/Results Medications: Active Medications Generic Name Dose Route Start Last Admin Trade Name Freq PRN Reason Stop Dose Admin Albuterol 1 puff 09/21/24 22:04 Albuterol Sulfate (*Sp) Aerosol 1 Puff INHALATION Q4H PRN Shortness Of Breath Atropine Sulfate 1 - 2 drop 09/21/24 16:20 Atropine Sulfate 1% Ophth Soln 5 Ml Bottle SUBLINGUAL Q4H PRN Secretions Carbidopa/Levodopa 1 tablet 09/22/24 00:00 09/22/24 13:31 Carbidopa/Levodopa 25/250 Mg Tablet PO 1 tablet Q4HRT TI Administration Carbidopa/Levodopa 2 tablet 09/21/24 22:15 09/21/24 22:37 Carbidopa/Levodopa 25/100 Mg Cr Tablet PO 2 tablet HS TI Administration Divalproex Sodium 125 mg 09/21/24 22:15 09/22/24 09:43 Divalproex Sodium Sprinkle 125 Mg Cap.Dr PO 125 mg BID TI Administration Sodium Chloride 1,000 mls @ 125 mls/hr 09/21/24 14:45 09/22/24 13:31 Normal Saline Iv IV CONT 125 mls/hr .Q8H TI Administration Lorazepam 2 mg 09/21/24 16:20 Lorazepam Inj (*Crx) 2 Mg/Ml Vial IV PUSH Q2H PRN Anxiety/Comfort Morphine Sulfate 2 mg 09/21/24 16:20 Morphine Sulfate (*Crx) 2 Mg/Ml Inj IV PUSH Q30M PRN COMFORT Olanzapine 5 mg 09/22/24 00:00 09/22/24 13:32 Olanzapine Dispertab 5 Mg PO 5 mg Q6HR TI Administration Tamsulosin HCl 0.4 mg 09/22/24 09:00 09/22/24 09:43 Tamsulosin Hcl 0.4 Mg Capsule PO 0.4 mg DAILY TI Administration Radiology Results: ITS Impressions Head/Neck CTA 09/21/24 12:53 IMPRESSION: 1. <10% stenosis of the right carotid bulb relative to normal distal artery lumen diameter (NASCET criteria). 2. 30% stenosis of the left carotid bulb relative to normal distal artery lumen diameter. 3. Normal aging brain with mild to moderate diffuse volume loss and mild scattered white matter hypoattenuation consistent with chronic small vessel ischemic disease. No acute intracranial process. Dr. Lopez discussed these findings with Dr. Reese at 12:56 PM. 4. Unremarkable cerebral CT angiogram with no hemodynamically significant stenosis, thrombosis or aneurysm. Chest X-Ray 09/21/24 13:22 IMPRESSION: 1. No acute cardiopulmonary disease. Labs Labs: Laboratory Results - last 24 hr 09/21/24 09/21/24 09/21/24 13:01 13:19 14:27 PT 14.0 INR 1.0 APTT 27.9 Lactic Acid Ammonia < 9 L Urine Color Dark yellow Urine Appearance Clear Urine pH 5.5 Ur Specific [place] 1.026 Urine Protein 1+ H Urine Glucose (UA) 2+ H Urine Ketones Trace H Ur Blood (Man) Negative Urine Nitrate Negative Urine Bilirubin Negative Urine Urobilinogen 0.2 Add Ur Microanalysis Reviewed Leukocyte Esterase Rfl Trace H Urine RBC 0-2 Urine WBC 0-5 Ur Squamous Epith Cells Occasional Urine Bacteria None seen Urine Casts >20 Hyaline Casts Present Urine Mucus Present Urine Opiates Screen Negative Urine Methadone Screen Negative Ur Barbiturates Screen Negative Ur Phencyclidine Scrn Negative Ur Amphetamine Screen Negative U Benzodiazepines Scrn Negative Urine Cocaine Screen Negative U Cannabinoids Screen Negative Ethyl Alcohol < 10 Influenza A (RT-PCR) Negative Influenza B (RT-PCR) Negative RSV (RT-PCR) Negative SARS-CoV-2 RNA (RT-PCR) Negative 09/21/24 16:52 PT INR APTT Lactic Acid 1.7 Ammonia Urine Color Urine Appearance Urine pH Ur Specific [place] Urine Protein Urine Glucose (UA) Urine Ketones Ur Blood (Man) Urine Nitrate Urine Bilirubin Urine Urobilinogen Add Ur Microanalysis Leukocyte Esterase Rfl Urine RBC Urine WBC Ur Squamous Epith Cells Urine Bacteria Urine Casts Hyaline Casts Urine Mucus Urine Opiates Screen Urine Methadone Screen Ur Barbiturates Screen Ur Phencyclidine Scrn Ur Amphetamine Screen U Benzodiazepines Scrn Urine Cocaine Screen U Cannabinoids Screen Ethyl Alcohol Influenza A (RT-PCR) Influenza B (RT-PCR) RSV (RT-PCR) SARS-CoV-2 RNA (RT-PCR)
[2024-09-22 14:57] VITALS: BP 162/73; PULSE 81; RESP 17; TEMP 36.3; O2SAT 100
--- NOTE | 2024-09-22 18:00 | PC.NURSE ---
RN changed patient's gown and while assessing patient's skin this RN recognized patient had a line in left upper arm. RN called plywood patcher Darlyn to room to help identify what type of line patient has in left upper arm. Line appears to be a picc line with a dressing date of 09/06. [facility].
[2024-09-22] MEDS: CARBIDOPA/LEVODOPA 25/100 MG CR TABLET 2 TABLET PO (21:11)
[2024-09-23] MEDS: CARBIDOPA/LEVODOPA 25/250 MG TABLET 1 TABLET PO ×2 (04:49→09:07)
[2024-09-23] MEDS: SODIUM CHLORIDE 0.9% IV 1,000 ML 125 ML IV CONT (04:51)
[2024-09-23] MEDS: OLANZapine DISPERTAB 5 MG PO (05:02)
[2024-09-23 06:00] VITALS: BP 132/76; PULSE 78; RESP 20; TEMP 37.2; O2SAT 99
[2024-09-23] MEDS: LORazepam INJ (*CRX) 2 MG/ML VIAL IV PUSH (09:06)
[2024-09-23] MEDS: TAMSULOSIN HCL 0.4 MG CAPSULE PO (09:07)
[2024-09-23] MEDS: DIVALPROEX SODIUM SPRINKLE 125 MG CAP.DR PO (09:07)
--- NOTE | 2024-09-23 10:53 | PM.IMPN ---
Progress Note: A&P Assessment and Plan (1) Unresponsive state: Code(s): R41.89 - Other symptoms and signs involving cognitive functions and awareness Status: Acute (2) Dementia: Code(s): F03.90 - Unspecified dementia, unspecified severity, without behavioral disturbance, psychotic disturbance, mood disturbance, and anxiety Status: Acute (3) Parkinson's Disease: Code(s): G20 - Parkinson's disease Status: Acute Plan 74-year-old male with past medical history of Parkinson's disease, dementia, COPD presented with an episode of unresponsiveness.ED workup showed: No leukocytosis, hemoglobin 12.7 (no previous available for comparison), normal coags, ABG showed O2 of 72.6 with O2 saturation of 94.7% on room air, creatinine 1.4 and GFR 49, glucose 145, lactic 2.9, negative ammonia, and UA showed 1+ protein, 2+ glucose, trace ketones, trace leuks otherwise unremarkable. UDS negative. Viral PCR negative. Head/neck CTA showed less than 10% stenosis of the right carotid bulb, 30% stenosis of the left carotid bulb, normal aging brain with [id number] diffuse volume loss and mild scattered white matter hypoattenuation, unremarkable CT cerebral CT angiogram. 1. Acute encephalopathy: History of baseline dementia Parkinson's disease who is a POA is requesting for evaluation for hospice/comfort care Referral has been sent Continue with levodopa carbidopa Continue with divalproex Continue with Zyprexa 2. DVT prophylaxis: SCDs 3. Code status: DNR 4. Disposition: Anticipate discharge within next 24 hours with hospice Time Spent With Patient Time with patient: Greater than 35 minutes Subjective Date/time seen: 09/23/24 10:53 Interval history: 74 y/o M presents here with unresponsiveness with PMH of dementia, COPD, diabetes, and hyperlipidemia. The patient presents here from a facility via EMS for further evaluation of unresponsiveness. Per facility to report to EMS the patient became unresponsive around 11:30 a.m.. At baseline the patient is A&O x1 secondary to advanced dementia. witnessed patient becoming unresponsive, she reports she was speaking with patient when this occurred. ED workup showed: No leukocytosis, hemoglobin 12.7 (no previous available for comparison), normal coags, ABG showed O2 of 72.6 with O2 saturation of 94.7% on room air, creatinine 1.4 and GFR 49, glucose 145, lactic 2.9, negative ammonia, and UA showed 1+ protein, 2+ glucose, trace ketones, trace leuks otherwise unremarkable. UDS negative. Viral PCR negative. Head/neck CTA showed less than 10% stenosis of the right carotid bulb, 30% stenosis of the left carotid bulb, normal aging brain with qrou-[id number] diffuse volume loss and mild scattered white matter hypoattenuation, unremarkable CT cerebral CT angiogram. 09/23- [facility] care. Review of Systems Review of Systems: ROS unobtainable: Yes unobtainable due to medical condition and unobtainable due to mental status (Unresponsive) Exam Narrative: Exam around 2100. Const: General: comfortable and no acute distress Other: , male, elderly, chronically ill-appearing HENMT: Face/Nose/Sinus: Normal nares present Mouth: Yes moist mucous membranes Eyes: General: appearance normal, both eyes and all related structures Sclera: sclerae normal Pupils: Equal, round and reactive pupils present EOM: EOMs intact bilaterally Neck: Neck: supple Resp: Effort & Inspection: normal respiratory effort Auscultation: clear to auscultation bilaterally Cardio: Rate: regular rate Rhythm: regular rhythm GI: Auscultation: normal bowel sounds Other: Abdomen soft, nondistended, nontender. Normoactive bowel sounds in all quadrants. Urinary Catheter: Urinary Catheter: patent and draining Skin: General skin exam: normal color and no rashes or lesions noted Other: Ecchymosis scattered to bilateral calves in various stages of healing with no particular pattern. Neuro: Cranial nerves: Yes Equal, round and reactive pupils present Other: A/Ox1, fine tremor at rest to head. unable to follow simple commands. Unable to assess strength due to inability to follow commands. Moving bilateral upper extremities. Extrem: Other: Trace edema to bilateral ankles. Psych: Other: Awake, alert and oriented x1 Objective Data Vital Signs Vital Signs: Vital Signs - 24 hr 09/22/24 14:57 09/22/24 20:30 09/23/24 06:00 Temperature 97.4 F L 98.9 F Pulse Rate 81 78 Respiratory Rate 17 20 Blood Pressure 162/73 H 132/76 Pulse Oximetry 100 99 Oxygen Delivery Room Air Intake/Output Intake/Output: Intake & Output 1209/21/24 09/22/24 09/23/24 23:59 23:59 23:59 23:59 Intake Total 2011.5 3359.6 1167.9 Output Total 1500 1000 Balance 2012.5 1859.6 167.9 Meds/Results Medications: Active Medications Generic Name Dose Route Start Last Admin Trade Name Freq PRN Reason Stop Dose Admin Albuterol 1 puff 09/21/24 22:04 Albuterol Sulfate (*Sp) Aerosol 1 Puff INHALATION Q4H PRN Shortness Of Breath Atropine Sulfate 1 - 2 drop 09/21/24 16:20 Atropine Sulfate 1% Ophth Soln 5 Ml Bottle SUBLINGUAL Q4H PRN Secretions Carbidopa/Levodopa 1 tablet 09/22/24 00:00 09/23/24 09:07 Carbidopa/Levodopa 25/250 Mg Tablet PO 1 tablet Q4HRT TI Administration Carbidopa/Levodopa 2 tablet 09/21/24 22:15 09/22/24 21:11 Carbidopa/Levodopa 25/100 Mg Cr Tablet PO 2 tablet HS TI Administration Divalproex Sodium 125 mg 09/21/24 22:15 09/23/24 09:07 Divalproex Sodium Sprinkle 125 Mg Cap.Dr PO 125 mg BID TI Administration Sodium Chloride 1,000 mls @ 125 mls/hr 09/21/24 14:45 09/23/24 04:51 Normal Saline Iv IV CONT 125 mls/hr .Q8H TI Administration Lorazepam 2 mg 09/21/24 16:20 09/23/24 09:06 Lorazepam Inj (*Crx) 2 Mg/Ml Vial IV PUSH 2 mg Q2H PRN Administration Anxiety/Comfort Morphine Sulfate 2 mg 09/21/24 16:20 Morphine Sulfate (*Crx) 2 Mg/Ml Inj IV PUSH Q30M PRN COMFORT Olanzapine 5 mg 09/22/24 00:00 09/23/24 05:02 Olanzapine Dispertab 5 Mg PO 5 mg Q6HR TI Administration Tamsulosin HCl 0.4 mg 09/22/24 09:00 09/23/24 09:07 Tamsulosin Hcl 0.4 Mg Capsule PO 0.4 mg DAILY TI Administration Radiology Results: ITS Impressions Head/Neck CTA 09/21/24 12:53 IMPRESSION: 1. <10% stenosis of the right carotid bulb relative to normal distal artery lumen diameter (NASCET criteria). 2. 30% stenosis of the left carotid bulb relative to normal distal artery lumen diameter. 3. Normal aging brain with mild to moderate diffuse volume loss and mild scattered white matter hypoattenuation consistent with chronic small vessel ischemic disease. No acute intracranial process. Dr. Lopez discussed these findings with Dr. Reese at 12:56 PM. 4. Unremarkable cerebral CT angiogram with no hemodynamically significant stenosis, thrombosis or aneurysm. Chest X-Ray 09/23/24 00:28 IMPRESSION: No acute cardiopulmonary pathology.
[2024-09-23 14:00] VITALS: BP 143/102; PULSE 79; RESP 14; TEMP 36.6; O2SAT 97
--- NOTE | 2024-09-23 14:47 | P.DS_ITS ---
DS: Admitting Diagnosis Discharge Date 09/23 Admitting Diagnosis unresponsiveness DS: Discharge Diagnosis Discharge Diagnosis (1) Unresponsive state: Code(s): R41.89 - Other symptoms and signs involving cognitive functions and awareness Status: Acute (2) Dementia: Code(s): F03.90 - Unspecified dementia, unspecified severity, without behavioral disturbance, psychotic disturbance, mood disturbance, and anxiety Status: Acute (3) Parkinson's Disease: Code(s): G20 - Parkinson's disease Status: Acute DS: Summary Hospital Course Hospital Course: 74-year-old male with past medical history of Parkinson's disease, dementia, COPD presented with an episode of unresponsiveness.ED workup showed: No leukocytosis, hemoglobin 12.7 (no previous available for comparison), normal coags, ABG showed O2 of 72.6 with O2 saturation of 94.7% on room air, creatinine 1.4 and GFR 49, glucose 145, lactic 2.9, negative ammonia, and UA showed 1+ protein, 2+ glucose, trace ketones, trace leuks otherwise unremarkable. UDS negative. Viral PCR negative. Head/neck CTA showed less than 10% stenosis of the right carotid bulb, 30% stenosis of the left carotid bulb, normal aging brain with [id number] diffuse volume loss and mild scattered white matter hypoattenuation, unremarkable CT cerebral CT angiogram. Acute encephalopathy: History of baseline dementia Parkinson's disease who is a POA is requesting for evaluation for hospice/comfort care Referral has been sent-care coordination consulted for help Continue with levodopa carbidopa Continue with divalproex Continue with Zyprexa Status at Discharge Functional status at discharge: bed bound Overall status at discharge: patient is not back to baseline Time Spent with Patient Time attestation: Total time spent providing and/or coordinating discharge services: Exam Narrative: resting in bed with eyes closed. appears comfortable Const: General: comfortable and no acute distress Other: , male, elderly, chronically ill-appearing HENMT: Face/Nose/Sinus: Normal nares present Mouth: Yes moist mucous membranes Eyes: General: appearance normal, both eyes and all related structures Sclera: sclerae normal Pupils: Equal, round and reactive pupils present EOM: EOMs intact bilaterally Neck: Neck: supple Resp: Effort & Inspection: normal respiratory effort Auscultation: clear to auscultation bilaterally Cardio: Rate: regular rate Rhythm: regular rhythm GI: Auscultation: normal bowel sounds Other: Abdomen soft, nondistended, nontender. Normoactive bowel sounds in all quadrants. Urinary Catheter: Urinary Catheter: patent and draining Skin: General skin exam: normal color and no rashes or lesions noted Other: Ecchymosis scattered to bilateral calves in various stages of healing with no particular pattern. Neuro: Cranial nerves: Yes Equal, round and reactive pupils present Other: A/Ox1, fine tremor at rest to head. unable to follow simple commands. Unable to assess strength due to inability to follow commands. Moving bilateral upper extremities. Extrem: Other: Trace edema to bilateral ankles. Psych: Other: Awake, alert and oriented x1 DS: Data Data Completed and Pending Labs on day of discharge: Preliminary micro results at discharge 09/22/24 23:08 Blood Culture - Preliminary Blood 09/22/24 23:08 Blood Culture - Preliminary Blood Discharge Plan Discharge Attending physician on discharge: Davidson Moreland Discharging Clinician: Lakeisha Pryor Patient Disposition: Hospice - Home Activity: february shower Diet: as tolerated and regular Discharge Instructions: you were admitted with an episode of unresponsiveness History of baseline dementia Parkinson's disease. evaluation is completed for hospice/comfort care Continue with levodopa carbidopa Continue with divalproex Continue with Zyprexa further management per hospice Stand Alone Forms: General Discharge Information Discharge Medications: New lorazepam [Ativan] 1 mg tablet 1 mg PO BID PRN (Reason: anxiety) Qty: 10 0RF Continued nitroglycerin [Nitrostat] 0.4 mg tablet, sublingual 0.4 mg sublingual Q5M Rx Instructions: do not exceed 3 doses per episode tramadol 50 mg tablet 50 mg PO .COMPLEX PRN (Reason: Pain (Scale Score 4-6)) Rx Instructions: 50 mg PO PRN; Adlarity 10 mg/24 hour patch weekly 10 mg transdermal WEEKLY Qty: 4 3RF Rx Instructions: Apply one time a day every for Dementia Anoro Ellipta 62.5-25 mcg/actuation blister with device 1 inh inhalation DAILY fluticasone propionate 50 mcg/actuation spray,suspension 2 spray intranasal DAILY Rx Instructions: administer into each nostril metoprolol tartrate 50 mg tablet 50 mg PO BID montelukast 10 mg tablet 10 mg PO DAILY omeprazole 40 mg capsule,delayed release(DR/EC) 40 mg PO DAILY albuterol sulfate [Ventolin HFA] 90 mcg/actuation HFA aerosol inhaler 1 puff inhalation Q4H PRN (Reason: SOB) Rx Instructions: SOB acetaminophen [Tylenol Extra Strength] 500 mg tablet 500 mg PO Q6H PRN (Reason: Hypoglycemia) docusate sodium 100 mg capsule 100 mg PO DAILY divalproex 125 mg capsule, delayed rel sprinkle 125 mg PO BID trazodone 50 mg tablet 50 mg PO HS tamsulosin 0.4 mg capsule 0.4 mg PO DAILY olanzapine 5 mg tablet,disintegrating 5 mg PO Q6H carbidopa-levodopa 25-250 mg tablet 50 - 250 tablet PO Q4H Rx Instructions: TAKE 1 TABLET BY MOUTH EVERY 4 HOURS while awake carbidopa-levodopa 50-200 mg tablet extended release 50 - 200 tablet PO HS Rx Instructions: TAKE 1 TABLET BY MOUTH AT BEDTIME Anoro Ellipta 62.5-25 mcg/actuation blister with device 1 inh INHALATION DAILY PRN (Reason: Short of breath) Baqsimi 3 mg/actuation [place],Non-Aerosol 3 mg INTRANASAL ONCE PRN (Reason: Hypoglycemia) Rx Instructions: 1 does in nostril [id number] needed for BS less than 70 and unable to swallow HOLD between fingers and thumb w/o pushing down on plunger insert tip into 1 nostril until fingers are touching the outside of nose. Push plunger down until green line disappears. Discontinued memantine 10 mg tablet See Rx Instructions .ROUTE .COMPLEX Qty: 180 0RF Dose Instruction: TAKE 1 TABLET BY MOUTH TWICE A DAY Rx Instructions: TAKE 1 TABLET BY MOUTH TWICE A DAY duloxetine 30 mg capsule,delayed release(DR/EC) 60 mg PO DAILY atorvastatin 80 mg tablet 80 mg PO HS fenofibrate nanocrystallized 48 mg tablet 48 mg PO DAILY Rx Instructions: 1 time a day for cholestrol magnesium oxide 400 mg (241.3 mg magnesium) tablet 400 mg PO DAILY Men 50 Plus Multivitamin 300-600-300 mcg tablet 1 tablet PO DAILY coenzyme Q10 100 mg capsule 100 mg PO DAILY vitamin B complex Capsule 1 cap PO DAILY aspirin 81 mg tablet,delayed release (DR/EC) 81 mg PO DAILY Repatha Syringe 140 mg/mL syringe 140 mg subcut ONCE Rx Instructions: every two weeks calcitriol 0.25 mcg capsule 0.25 mcg PO DAILY ferrous sulfate 325 mg (65 mg iron) tablet 325 mg PO DAILY ferrous sulfate 325 mg (65 mg iron) tablet sodium chloride 0.9 % (flush) [Normal Saline Flush] Syringe 10 ml IV EVERY OTHER DAY Rx Instructions: One time a day, every other day PICC line No Action Repatha SureClick 140 mg/mL pen injector 140 mg SUBCUT DAILY Date of admission: 09/22/24 14:07 Primary Care Provider: Yimi,Tan Augustin Admitting Provider: Roberto Martínez Attending physician on admission: Roberto Martínez Condition: Guarded Prognosis
--- NOTE | 2024-09-23 16:37 | PC.NURSE ---
PICC line removed prior to discharge to [facility] per [facility] hospice request.
== END 2024-09-23 20:04 | disposition hospice, home (50) | DRG 884 ==
LOC: ANHED 13:16 → ANH3MEDSUR 15:39 → ANH3MED 16:19
PROVIDERS: Admitting Provider General Practice; Emergency Provider Emergency Medicine; PCP Internal Medicine; Visit Provider Nurse Practitioner
DX: R40.4 Transient alteration of awareness (principal); G93.49 Other encephalopathy; F03.90 Unspecified dementia, unspecified severity, without behavioral disturbance, psychotic disturbance, mood disturbance, and anxiety; G20.A1 Parkinson's disease without dyskinesia, without mention of fluctuations; J44.9 Chronic obstructive pulmonary disease, unspecified; E11.9 Type 2 diabetes mellitus without complications; E78.5 Hyperlipidemia, unspecified; M19.90 Unspecified osteoarthritis, unspecified site; Z66 Do not resuscitate; Z95.5 Presence of coronary angioplasty implant and graft; Z74.01 Bed confinement status
CPT/HCPCS: 36415; 36600; 70496; 70498; 71045; 80053; 80307; 81001; 82077; 82140; 82375; 82805; 82948; 83050; 83605; 85018; 85025; 85610; 85730; 87040; 87637; 93005; 95816; 96361; 96374; 99285; A9270; G0378; J2060; J2310; J7030; Q9967